=== PATIENT | female | born 1990 | race Caucasian/White ===

== ENCOUNTER 2018-02-01 20:22 | Observation (INO) | payer SELFPAY ==
[~2018-02-01] VITALS: Ht 154.9 cm; Wt 77.0 kg
[~2018-02-01 20:22] MED LIST: ALPR.25 PO; Alprazolam0.25 MG; GLIP5; GLIP5ER PO; HYDACE10B PO; Hydrocodone-Ap1 EA20; LEVO750; LEVO750 PO; LISI20; LISI20 PO; Lopressor 25 mg25 MG; Lopressor 25 mg25 MG PO; METF500; METF500 PO; Ventolin Soln3 ML
[2018-02-01 21:22] LABS: BASOPHILS ABSOLUTE AUTO 0.07 K/mm3 (0.00-0.23); BASOPHILS PERCENT AUTO 0 % (0-2); EOSINOPHILS PERCENT AUTO 0 % (0-6); Hematocrit 48.8 % (33.0-51.0); IMMATURE GRAN ABSOLUTE AUTO 0.26 K/mm3 (0.00-0.10); IMMATURE GRAN PERCENT AUTO 1 % (0-1); LYMPHOCYTES ABSOLUTE AUTO 2.31 K/mm3 (0.84-5.20); LYMPHOCYTES PERCENT AUTO 10 % (21-46); MONOCYTES ABSOLUTE AUTO 1.38 K/mm3 (0.16-1.47); MONOCYTES PERCENT AUTO 6 % (4-13); Mean Corpuscular HGB 29.7 pg (26.0-34.0); Mean Corpuscular HGB Conc 34.8 g/dL (31.5-36.5); Mean Corpuscular Volume 85 fL (80-100); Mean Platelet Volume 10.1 fL (9.1-12.4); NEUTROPHILS ABSOLUTE AUTO 18.11 K/mm3 (1.96-9.15); NEUTROPHILS PERCENT AUTO 82 % (41-73); Platelet Count 281 K/mm3 (150-400); Red Blood Cell Count 5.73 M/mm3 (3.80-5.20); White Blood Cell Count 22.13 K/mm3 (4.00-11.30)
[2018-02-01 21:39] LABS: Alanine Aminotransfer (ALT/SGP 55 U/L (12-78); Albumin, Blood 4.1 g/dL (3.4-5.0); Albumin/Globulin Ratio 0.9 (0.8-1.8); Alk Phos 119 U/L (50-136); Anion Gap 15 mmol/L (6-16); Aspartate Aminotrans (AST/SGOT 13 U/L (12-37); Bilirubin, Total 1.5 mg/dL (0.1-1.0); Blood Urea Nitrogen 11 mg/dL (8-24); Bun/Creatinine Ratio 23.4 (12.0-20.0); CO2, Blood 19 mmol/L (21-32); Calcium, Blood 9.8 mg/dL (8.5-10.1); Chloride, Blood 99 mmol/L (98-108); Creatinine, Blood 0.47 mg/dL (0.40-1.00); Globulin, Blood 4.7 g/dL (2.2-4.0); Glomerular Filtration Rate >60 (60-); Glucose, Blood 278 mg/dL (70-99); Potassium, Blood 4.2 mmol/L (3.5-5.5); Sodium, Blood 133 mmol/L (136-145); Total Protein, Blood 8.8 g/dL (6.4-8.2)
[2018-02-01 22:51] LABS: International Normalized Ratio 1.08; Prothrombin Time Results 11.3 Sec (9.7-11.5)
[2018-02-01 22:54] LABS: Source, Urine Clean Catch
[2018-02-01 22:57] LABS: Bilirubin, Urine Neg (Neg); Blood, Urine 1+ (Neg); Glucose Qualitative, Urine 4+ (Neg); Ketones, Urine 4+ (Neg); Leukocyte Esterase, Urine Neg (Neg); Nitrite, Urine Neg (Neg); Protein, Urine 3+ (Neg); Specific Gravity, Urine 1.025 (1.003-1.022); Urobilinogen, Urine NORM (Normal)
[2018-02-01 23:10] LABS: Color, Urine Yellow (P-Yellow)
[2018-02-01 23:11] LABS: Amorphous Light (0-Heavy); Appearance, Urine Clear (Clear); Bacteria Rare /hpf; Hyaline Casts 0-2 /lpf (0-2); Mucus Light (0-Heavy); Red Blood Cells, Urine 0-2 /hpf (0-2); Squamous Epithelial Cells Few /hpf (Few); White Blood Cells, Urine Rare /hpf (0-5)
[2018-02-02 00:27] LABS: Base Excess Venous -12.6 mmol/L; Bicarbonate Venous 16.4 mmol/L (24.0-30.0); PO2 Venous 98.5 mmHg (38-42); pH Blood Venous 7.32 (7.34-7.37)
[2018-02-02 01:08] LABS: Beta-hydroxybutyrate 39.4 mg/dL (0.2-2.8)
[2018-02-03 04:16] LABS: BASOPHILS ABSOLUTE AUTO 0.02 K/mm3 (0.00-0.23); BASOPHILS PERCENT AUTO 0 % (0-2); EOSINOPHILS PERCENT AUTO 0 % (0-6); Hematocrit 40.7 % (33.0-51.0); Hemoglobin 13.9 g/dL (11.5-16.0); IMMATURE GRAN ABSOLUTE AUTO 0.14 K/mm3 (0.00-0.10); IMMATURE GRAN PERCENT AUTO 1 % (0-1); LYMPHOCYTES ABSOLUTE AUTO 1.81 K/mm3 (0.84-5.20); LYMPHOCYTES PERCENT AUTO 11 % (21-46); MONOCYTES ABSOLUTE AUTO 1.37 K/mm3 (0.16-1.47); MONOCYTES PERCENT AUTO 8 % (4-13); Mean Corpuscular HGB 29.1 pg (26.0-34.0); Mean Corpuscular HGB Conc 34.2 g/dL (31.5-36.5); Mean Corpuscular Volume 85 fL (80-100); Mean Platelet Volume 10.3 fL (9.1-12.4); NEUTROPHILS ABSOLUTE AUTO 13.41 K/mm3 (1.96-9.15); NEUTROPHILS PERCENT AUTO 80 % (41-73); Platelet Count 216 K/mm3 (150-400); RDW Coefficient Variation 12.3 % (11.7-14.2); RDW Standard Deviation 38.3 fL (35.1-46.3); Red Blood Cell Count 4.78 M/mm3 (3.80-5.20); White Blood Cell Count 16.75 K/mm3 (4.00-11.30)
[2018-02-03 04:30] LABS: Albumin, Blood 2.6 g/dL (3.4-5.0); Anion Gap 7 mmol/L (6-16); Blood Urea Nitrogen 11 mg/dL (8-24); Bun/Creatinine Ratio 24.2 (12.0-20.0); CO2, Blood 26 mmol/L (21-32); Calcium, Blood 9.2 mg/dL (8.5-10.1); Chloride, Blood 104 mmol/L (98-108); Creatinine, Blood 0.45 mg/dL (0.40-1.00); Glomerular Filtration Rate >60 (60-); Glucose, Blood 252 mg/dL (70-99); Phosphorus, Blood 2.3 mg/dL (2.5-4.9); Potassium, Blood 3.5 mmol/L (3.5-5.5); Sodium, Blood 137 mmol/L (136-145)
[2018-02-03] MEDS ORDERED: HYDR1TAB94 PO (10:04)
[2018-02-03] MEDS ORDERED: ONDA4ODT PO (10:05)
[2018-02-03] MEDS ORDERED: INSDET100 SC (11:10)
[2018-02-03] MEDS ORDERED: Novolog Fl100 UNIT/1 SC (11:10)
[2018-02-03] MEDS ORDERED: METF500C PO (11:13)
[2018-02-03] MEDS ORDERED: METO25 PO (12:50)
== END 2018-02-03 13:22 | disposition home or self-care (01) ==
LOC: ER 20:22 → PCU 20:24 → ER 02-02 00:41 → PCU 02-02 00:41 → ER 02-02 20:23 → PCU 02-02 20:23
PROVIDERS: Emergency Medicine; Family Medicine; Surgery
PROC: 0DTJ4ZZ Resection of Appendix, Percutaneous Endoscopic Approach (ICD-10-PCS; principal; 2018-02-02 10:15)
DX: K35.80 Unspecified acute appendicitis (principal); I10 Essential (primary) hypertension; E11.9 Type 2 diabetes mellitus without complications; E66.01 Morbid (severe) obesity due to excess calories; N12 Tubulo-interstitial nephritis, not specified as acute or chronic; A41.9 Sepsis, unspecified organism; E87.2 Acidosis
CPT/HCPCS: 36415; 71046; 74177; 76856; 80053; 80069; 81001; 81025; 82010; 82803; 82947; 83036; 83605; 83690; 85025; 85610; 85730; 87086; 93005; 93010; 96361; 96365; 96375; 99285; J0330; J1100; J1815; J1885; J2060; J2250; J2270; J2405; J2543; J2710; J3010; J7030; J7120; Q9967

== ENCOUNTER 2018-03-13 10:22 | Emergency (ER) | payer BC ==
[~2018-03-13] VITALS: Ht 154.9 cm; Wt 68.0 kg
[~2018-03-13 10:22] MED LIST changes: -Diflucan100 MG PO; -Ultram50 MG PO
[2018-03-13] MEDS ORDERED: Ultram50 MG PO (14:39)
[2018-03-13] MEDS ORDERED: Diflucan100 MG PO (14:39)
== END 2018-03-13 15:12 | disposition home or self-care (01) ==
LOC: ER 10:22
DX: E11.65 Type 2 diabetes mellitus with hyperglycemia (principal); Z79.4 Long term (current) use of insulin; Z79.84 Long term (current) use of oral hypoglycemic drugs; Z79.899 Other long term (current) drug therapy; I10 Essential (primary) hypertension
CPT/HCPCS: 36415; 82010; 82947; 99283

== ENCOUNTER → 2018-03-13 | Outpatient (CLI) | payer SELFPAY ==
[~2018-03-13] MED LIST changes: +Diflucan100 MG PO; +HYDR1TAB94 PO; +INSDET100 SC; +METF500C PO; +METO25 PO; +Novolog Fl100 UNIT/1 SC; +ONDA4ODT PO; +Ultram50 MG PO
[2018-03-13 11:38] LABS: BASOPHILS ABSOLUTE AUTO 0.03 K/mm3 (0.00-0.23); BASOPHILS PERCENT AUTO 0 % (0-2); EOSINOPHILS ABSOLUTE AUTO 0.02 K/mm3 (0.00-0.68); EOSINOPHILS PERCENT AUTO 0 % (0-6); Hematocrit 44.8 % (33.0-51.0); Hemoglobin 15.1 g/dL (11.5-16.0); IMMATURE GRAN PERCENT AUTO 1 % (0-1); LYMPHOCYTES ABSOLUTE AUTO 2.61 K/mm3 (0.84-5.20); LYMPHOCYTES PERCENT AUTO 20 % (21-46); MONOCYTES ABSOLUTE AUTO 1.34 K/mm3 (0.16-1.47); MONOCYTES PERCENT AUTO 10 % (4-13); Mean Corpuscular HGB Conc 33.7 g/dL (31.5-36.5); Mean Corpuscular Volume 83 fL (80-100); Mean Platelet Volume 10.4 fL (9.1-12.4); NEUTROPHILS ABSOLUTE AUTO 9.31 K/mm3 (1.96-9.15); NEUTROPHILS PERCENT AUTO 70 % (41-73); Platelet Count 272 K/mm3 (150-400); RDW Coefficient Variation 13.2 % (11.7-14.2); RDW Standard Deviation 39.7 fL (35.1-46.3); White Blood Cell Count 13.41 K/mm3 (4.00-11.30)
[2018-03-13 11:52] LABS: Alanine Aminotransfer (ALT/SGP 40 U/L (12-78); Albumin/Globulin Ratio 0.9 (0.8-1.8); Alk Phos 120 U/L (50-136); Anion Gap 11 mmol/L (6-16); Aspartate Aminotrans (AST/SGOT 13 U/L (12-37); Bilirubin, Total 0.7 mg/dL (0.1-1.0); Blood Urea Nitrogen 10 mg/dL (8-24); Bun/Creatinine Ratio 23.6 (12.0-20.0); CO2, Blood 23 mmol/L (21-32); Calcium, Blood 9.5 mg/dL (8.5-10.1); Chloride, Blood 101 mmol/L (98-108); Creatinine, Blood 0.42 mg/dL (0.40-1.00); Globulin, Blood 4.7 g/dL (2.2-4.0); Glomerular Filtration Rate >60 (60-); Glucose, Blood 314 mg/dL (70-99); Potassium, Blood 3.8 mmol/L (3.5-5.5); Sodium, Blood 135 mmol/L (136-145); Total Protein, Blood 8.7 g/dL (6.4-8.2)
== END | disposition home or self-care (01) ==
LOC: LAB 11:24 → LAB SHORT 11:24
PROVIDERS: Physician Assistant
DX: R53.83 Other fatigue (principal); R30.0 Dysuria; R81 Glycosuria
CPT/HCPCS: 80053; 83036; 85025; 87086

== ENCOUNTER → 2021-06-16 | Outpatient (CLI) | payer BC ==
[~2021-06-16] MED LIST changes: +Diflucan100 MG PO; +Ultram50 MG PO
== END ==
LOC: LAB 22:00 → LAB SHORT 22:00
DX: E11.9 Type 2 diabetes mellitus without complications (principal); Z13.220 Encounter for screening for lipoid disorders; Z79.84 Long term (current) use of oral hypoglycemic drugs
CPT/HCPCS: 82533

== ENCOUNTER → 2023-01-30 | Outpatient (CLI) | payer BC ==
[2023-02-06 15:07] LABS: #1 SALIVARY CORTISOL 0.028 ug/dL (.); #2 SALIVARY CORTISOL 0.025 ug/dL (.)
== END ==
LOC: LAB 11:30 → LAB SHORT 11:30
PROVIDERS: Internal Medicine Endocrinology, Diabetes & Metabolism
DX: D35.2 Benign neoplasm of pituitary gland (principal); E22.1 Hyperprolactinemia; E22.0 Acromegaly and pituitary gigantism
CPT/HCPCS: 82533

== ENCOUNTER → 2023-04-29 | Outpatient (CLI) | payer BC, OTHER ==
[2023-04-29 16:11] LABS: BASOPHILS ABSOLUTE AUTO 0.04 K/mm3 (0.00-0.23); BASOPHILS PERCENT AUTO 0 % (0-2); EOSINOPHILS ABSOLUTE AUTO 0.15 K/mm3 (0.00-0.68); EOSINOPHILS PERCENT AUTO 1 % (0-6); Hematocrit 44.9 % (33.0-51.0); Hemoglobin 15.5 g/dL (11.5-16.0); IMMATURE GRAN ABSOLUTE AUTO 0.07 K/mm3 (0.00-0.10); IMMATURE GRAN PERCENT AUTO 1 % (0-1); LYMPHOCYTES ABSOLUTE AUTO 3.86 K/mm3 (0.84-5.20); LYMPHOCYTES PERCENT AUTO 34 % (21-46); MONOCYTES ABSOLUTE AUTO 0.75 K/mm3 (0.16-1.47); MONOCYTES PERCENT AUTO 7 % (4-13); Mean Corpuscular HGB 28.8 pg (26.0-34.0); Mean Corpuscular HGB Conc 34.5 g/dL (31.5-36.5); Mean Corpuscular Volume 83 fL (80-100); Mean Platelet Volume 10.3 fL (9.1-12.4); NEUTROPHILS ABSOLUTE AUTO 6.56 K/mm3 (1.96-9.15); NEUTROPHILS PERCENT AUTO 57 % (41-73); Platelet Count 276 K/mm3 (150-400); RDW Coefficient Variation 13.1 % (11.7-14.2); RDW Standard Deviation 39.3 fL (35.1-46.3); Red Blood Cell Count 5.39 M/mm3 (3.80-5.20); White Blood Cell Count 11.43 K/mm3 (4.00-11.30)
[2023-04-29 16:18] LABS: Bun/Creatinine Ratio 17.1 (12.0-20.0); Calcium, Blood 9.8 mg/dL (8.5-10.1); Creatinine, Blood 0.76 mg/dL (0.40-1.00); Potassium, Blood 4.1 mmol/L (3.5-5.5)
== END ==
LOC: LAB 16:07 → LAB SHORT 16:07
PROVIDERS: Physician Assistant Surgical
DX: R42 Dizziness and giddiness (principal)
CPT/HCPCS: 80048; 85025

== ENCOUNTER → 2023-09-14 | Outpatient (CLI) | payer BC, OTHER ==
[2023-09-15 09:11] LABS: Candida species (DNA Probe) Negative (NEGATIVE); G. vaginalis (DNA Probe) Positive (NEGATIVE); T. vaginalis (DNA Probe) Negative (NEGATIVE)
== END | disposition home or self-care (01) ==
LOC: LAB SHORT 11:59 → LAB 11:59
PROVIDERS: Advanced Practice Midwife
DX: N76.0 Acute vaginitis (principal)
CPT/HCPCS: 87480; 87510; 87660